=== PATIENT | female | born 1950 | race Caucasian/White ===

== ENCOUNTER 2017-07-31 13:57 | Outpatient (CLI) | payer MEDICARE, BC | END 2017-07-31 13:58 | disposition home or self-care (01) | LOC: BICMAMMO 13:57 | PROVIDERS: ATTEND Internal Medicine | DX: Z12.31 Encounter for screening mammogram for malignant neoplasm of breast (principal); Z13.820 Encounter for screening for osteoporosis; M85.88 Other specified disorders of bone density and structure, other site; N63.10 Unspecified lump in the right breast, unspecified quadrant; R92.1 Mammographic calcification found on diagnostic imaging of breast; Z80.3 Family history of malignant neoplasm of breast | CPT/HCPCS: 77063; 77067; 77080 ==

== ENCOUNTER 2017-08-13 14:34 | Outpatient (CLI) | payer MEDICARE, BC | END 2017-08-13 14:35 | disposition home or self-care (01) | LOC: BICMAMMO 14:34 | PROVIDERS: ATTEND Internal Medicine | DX: N63.10 Unspecified lump in the right breast, unspecified quadrant (principal) | CPT/HCPCS: 76642; 77065; G0279 ==

== ENCOUNTER 2018-10-02 20:52 | Emergency (ER) | payer MEDICARE, BC ==
--- NOTE | 2018-10-02 21:33 | RAD ---
3 views right shoulder: 10/02/2018 COMPARISON: None HISTORY: Prior right shoulder arthroplasty, fall, injury, pain FINDINGS: There is no widening of the right acromioclavicular or coracoclavicular interspace. There is evidence of prior shoulder arthroplasty with a prosthetic humeral head component noted. On the scapular Y view the humeral head component projects slightly anterior to the glenoid which cou ld be normal in a patient status post shoulder arthroplasty or could signify mild anterior subluxation. Clinical correlation is required. Correlation with prior imaging would be quite helpful. There is a questionable subtle fracture versus artifact on image 1 of 3 associated with the proximal right humerus laterally. This may be better assessed via CT examination. IMPRESSION: Questionable subtle nondisplaced fracture involving the lateral proximal right humerus on image 1 of 3. Anterior subluxation versus postoperative laxity on scapular Y view. Orthopedic consultation and correlation with prior postoperative imaging required.
[2018-10-02] MEDS ORDERED: HYDROcodone/Acetaminophen 5/325 mg Tablet ONE (21:58)
== END 2018-10-02 22:25 | disposition home or self-care (01) ==
LOC: SCSER 20:52
DX: M25.511 Pain in right shoulder (principal); I10 Essential (primary) hypertension; F41.9 Anxiety disorder, unspecified; Z96.611 Presence of right artificial shoulder joint; W01.0XXA Fall on same level from slipping, tripping and stumbling without subsequent striking against object, initial encounter; Y92.59 Other trade areas as the place of occurrence of the external cause

== ENCOUNTER 2018-12-29 12:48 | Day surgery (SDC) | payer MEDICARE, BC ==
[2018-12-28 13:41] VITALS: BMI 28.8
[~2018-12-29 12:48] MED LIST: FLU VACC TS2019-20(65YR UP)/PF 180 MCG/0.5 ML SYRINGE IM ONE
[2018-12-29] MEDS ORDERED: Sodium Bicarbonate 2.5 MEQ/5 ML VIAL ONE (12:50)
[2018-12-29] MEDS ORDERED: Lidocaine 1% PF 5 ML VIAL ONE (12:50)
--- NOTE | 2018-12-29 14:30 | ULT ---
THYROID ULTRASOUND: Date: 12/29/18 INDICATION: Enlarged nodular thyroid noted on recent imaging study. FINDINGS: Right lobe of thyroid is enlarged and very heterogeneous. Right lobe measures 4.8 x 1.7 x 2.5 cm. No defined mass or nodule in the right lobe. The entire right lobe is abnormal with heterogeneous echote xture. The left lobe is also very heterogeneous and enlarged. There is a circumscribed nodular mass-like are a in the superior left lobe which is very heterogeneous with internal cystic components, which measur es approximately 2.3 x 4.0 cm. The inferior left lobe is very heterogeneous. There is a calcification in the inferior left lobe producing dense shadowing obscuring portions of the lower left lobe. IMPRESSION: Both thyroid lobes are enlarged and heterogeneous. Heterogeneous complex partially cystic nodular mas s involves the superior left lobe. There is a nodular mass involving the inferior left lobe with a torres perior calcification producing dense shadowing obscuring detail. The patient is scheduled for ultrasound guided FNA of the left upper lobe mass. POS: JEANNETTE
--- NOTE | 2018-12-29 14:33 | ULT ---
PROCEDURE: Ultrasound guided FNA complex mass superior left lobe of thyroid. FINDINGS: Three FNA samples were obtained of the complex mass involving the superior left lobe of thyroid using 25 gauge needle. Each sample was given to pathology for processing. Adequacy was confirmed. INDICATION: Left lobe thyroid mass had been previously documented on outside imaging and thyroid ultrasound. Elizabeth ent referred for FNA of this mass. PROCEDURE NOTE: Neck was prepped and draped in the sterile manner. Local anesthesia over the left lobe of thyroid was administered under ultrasound guidance. A 25 gauge needle was used to enter the complex mass in the superior left lobe under ultrasound confirmation. FNA performed under ultrasound observation and guid ance. Three FNA samples were obtained and given to pathology. Postprocedure ultrasound showed no hematoma. The patient tolerated the procedure well and there were no problems or complications. POS: JEANNETTE
[2018-12-29 15:25] VITALS: BP 139/56; TEMP 97.9
== END 2018-12-29 14:20 | disposition home or self-care (01) ==
LOC: ULT 12:48
PROVIDERS: ATTEND Specialist
DX: E04.1 Nontoxic single thyroid nodule (principal)
CPT/HCPCS: 60100; 76536; 76942; 88173; 88305; J2001

== ENCOUNTER 2019-12-26 08:54 | Outpatient (CLI) | payer MEDICARE, BC, OTHER ==
[2019-12-26 16:20] LABS: SARS-CoV-2 MS2 Positive; SARS-CoV-2 N Gene Negative; SARS-CoV-2 S Gene Negative; SARS-CoV-2 by NAA Not Detected (NotDetected); SARS-CoV-2 orf1ab Negative
== END 2019-12-26 08:55 | disposition home or self-care (01) ==
LOC: LABBT 08:54
PROVIDERS: ATTEND Specialist
DX: Z20.828 Contact with and (suspected) exposure to other viral communicable diseases (principal)
CPT/HCPCS: 87635; U0003

== ENCOUNTER 2019-12-28 12:11 | Day surgery (SDC) | payer MEDICARE, BC ==
[2019-12-27 11:23] VITALS: BMI 26.4
[2019-12-28] MEDS ORDERED: Sodium Bicarbonate 2.5 MEQ/5 ML VIAL ONE (12:30)
[2019-12-28] MEDS ORDERED: Lidocaine 1% PF 5 ML VIAL ONE (12:30)
--- NOTE | 2019-12-28 14:25 | ULT ---
Thyroid nodule FNA sonographic guided x2 HISTORY: Abnormal thyroid nodules. FINDINGS: After explaining the procedure and answering all questions, the dominant nodules of the thy roid isthmus and right lobe were visualized. Sterile technique, buffered local anesthesia, sonographic guidance, and a left anterolateral approach were used to carefully advance a 25-gauge needle into the heterogeneous nodule involving the right side of the thyroid isthmus.. Position was confirmed with sonography. Findings of aspirate was obtain ed. A total of 4 passes were made and submitted to pathology for processing. Attention was then turned to the dominant nodule in the right thyroid lobe. Sterile technique, buffer ed local anesthesia, sonographic guidance, and a medial approach were used to carefully advance the tip of a 25-gauge needle into the nodule. Position confirmed with sonography. A total of 4 FNA specim ens obtained and submitted to pathology for processing. Postprocedure imaging shows no evidence of complication. Patient tolerated the procedure well and was dismissed in good condition. IMPRESSION : Technically successful sonographic guided FNA of 2 thyroid nodules. Pathology is pending.
[2019-12-28 15:10] VITALS: BP 108/58; TEMP 98.4
--- NOTE | 2019-12-30 14:18 | ULT ---
Thyroid nodule FNA sonographic guided x2 HISTORY: Abnormal thyroid nodules. FINDINGS: After explaining the procedure and answering all questions, the dominant nodules of the thy roid isthmus and right lobe were visualized. Sterile technique, buffered local anesthesia, sonographic guidance, and a left anterolateral approach were used to carefully advance a 25-gauge needle into the heterogeneous nodule involving the right side of the thyroid isthmus.. Position was confirmed with sonography. Findings of aspirate was obtain ed. A total of 4 passes were made and submitted to pathology for processing. Attention was then turned to the dominant nodule in the right thyroid lobe. Sterile technique, buffer ed local anesthesia, sonographic guidance, and a medial approach were used to carefully advance the tip of a 25-gauge needle into the nodule. Position confirmed with sonography. A total of 4 FNA specim ens obtained and submitted to pathology for processing. Postprocedure imaging shows no evidence of complication. Patient tolerated the procedure well and was dismissed in good condition. IMPRESSION : Technically successful sonographic guided FNA of 2 thyroid nodules. Pathology is pending. Transcribed Date/Time: 12/30/2019 2:18 PM
== END 2019-12-28 13:30 | disposition home or self-care (01) ==
LOC: ULT 12:11
PROVIDERS: ATTEND Specialist
PROC: 0G9H3ZX Drainage of Right Thyroid Gland Lobe, Percutaneous Approach, Diagnostic (ICD-10-PCS; principal; 2019-12-28)
DX: E04.2 Nontoxic multinodular goiter (principal); M19.90 Unspecified osteoarthritis, unspecified site; I10 Essential (primary) hypertension; F41.9 Anxiety disorder, unspecified; F32.9 Major depressive disorder, single episode, unspecified; E78.00 Pure hypercholesterolemia, unspecified; Z87.891 Personal history of nicotine dependence; Z79.82 Long term (current) use of aspirin; Z79.899 Other long term (current) drug therapy
CPT/HCPCS: 60100; 76942; 88173

== ENCOUNTER 2021-05-31 14:20 | Outpatient (CLI) | payer MEDICARE, BC | END 2021-05-31 14:21 | disposition home or self-care (01) | LOC: BICMAMMO 14:20 | PROVIDERS: ATTEND Family Medicine | DX: Z12.31 Encounter for screening mammogram for malignant neoplasm of breast (principal); Z80.3 Family history of malignant neoplasm of breast | CPT/HCPCS: 77063; 77067 ==

== ENCOUNTER 2021-10-25 08:46 | Outpatient (CLI) | payer MEDICARE, BC | END 2021-10-25 08:47 | disposition home or self-care (01) | LOC: CT 08:46 | PROVIDERS: ATTEND Orthopaedic Surgery | DX: T84.038A Mechanical loosening of other internal prosthetic joint, initial encounter (principal); M19.011 Primary osteoarthritis, right shoulder; E04.2 Nontoxic multinodular goiter; M62.511 Muscle wasting and atrophy, not elsewhere classified, right shoulder; Z96.611 Presence of right artificial shoulder joint ==

== ENCOUNTER 2022-01-20 10:15 | Inpatient (IN) | payer MEDICARE, BC ==
[2022-04-02 11:41] VITALS: BMI 28.3
[2022-04-03] MEDS ORDERED: Lidocaine 1% (PF) 30 ML VIAL ONE (06:26)
[2022-04-03] MEDS ORDERED: Bupivacaine PF 0.5% 30 ML VIAL ONE (06:26)
[2022-04-03] MEDS ORDERED: Fentanyl 100 MCG/2 ML VIAL SLOW IVP PRN (06:43)
[2022-04-03] MEDS ORDERED: Zolpidem Tartrate 5 MG TAB PO PRN (06:45)
[2022-04-03] MEDS ORDERED: HYDROcodone/Acetaminophen 10/325 mg Tablet PO PRN (06:45)
[2022-04-03] MEDS ORDERED: Ropivacaine 0.2% 550 ML 550 ML NERVE BLCK SCH (06:45)
[2022-04-03] MEDS ORDERED: traMADol HCl 50 MG TAB PO PRN ×2 (06:45)
[2022-04-03] MEDS ORDERED: Promethazine HCl 25 MG/ML VIAL IM PRN ×2 (06:45→10:13)
[2022-04-03] MEDS ORDERED: Ondansetron PF 4 MG/2 ML Vial IVP PRN (06:45)
[2022-04-03] MEDS ORDERED: Fentanyl 100 MCG/2 ML VIAL ONE (06:56)
[2022-04-03] MEDS ORDERED: Midazolam HCl 2 mg/2 ml Vial ONE (06:56)
[2022-04-03] MEDS ORDERED: Aspirin 81 mg Enteric Coated Tablet PO SCH (07:00)
[2022-04-03] MEDS ORDERED: Lidocaine 1% PF 5 ML VIAL ONE (07:19)
[2022-04-03] MEDS ORDERED: PROPOFOL 200 MG/20 ML VIAL ONE (07:19)
[2022-04-03] MEDS ORDERED: Rocuronium Bromide 10 MG/ML (10ML VIAL) ONE (07:19)
[2022-04-03] MEDS ORDERED: Dexamethasone 20 MG/5 ML VIAL ONE (07:19)
[2022-04-03] MEDS ORDERED: Bupivacaine HCl 0.5%/Epinephrine 1:200,000/PF 30 ml Vial ONE (07:19)
[2022-04-03] MEDS ORDERED: Ondansetron PF 4 MG/2 ML Vial ONE (07:19)
[2022-04-03] MEDS ORDERED: ePHEDrine 50 MG/ML VIAL ONE (07:19)
[2022-04-03] MEDS ORDERED: fentaNYL PF 100 MCG/2 ML SYRINGE ONE (07:22)
[2022-04-03] MEDS ORDERED: Dexmedetomidine 200 MCG/2 ML VIAL ONE (07:22)
[2022-04-03] MEDS ORDERED: Phenylephrine 10 MG/ML VIAL ONE (07:22)
[2022-04-03] MEDS ORDERED: Tranexamic Acid 1,000 MG/10 ML VIAL ONE (07:24)
[2022-04-03] MEDS ORDERED: Vancomycin (BATCH) 1.5 GRAM/300 ML BAG ONE (07:24)
[2022-04-03] MEDS ORDERED: Sodium Chloride 0.9% 100 ML ONE ×2 (07:24→07:25)
[2022-04-03] MEDS ORDERED: CEFAZOLIN 2 GM VIAL ONE (07:25)
[2022-04-03 07:33] LABS: SARS-CoV-2 NAA Rapid Test Not Detected (NotDetected)
[2022-04-03] MEDS ORDERED: Non-Formulary Item 1 EACH (Losartan Potassium [Cozaar] 100 MG Tablet) PO SCH (09:00)
[2022-04-03] MEDS ORDERED: SUGAMMADEX SODIUM 200 MG/2 ML VIAL ONE (09:30)
[2022-04-03] MEDS ORDERED: ePHEDrine Sulfate 50 MG/10 ML VIAL ONE (10:09)
[2022-04-03] MEDS ORDERED: Ondansetron HCl/PF 4 MG/2 ML Vial IVP PRN (10:13)
[2022-04-03] MEDS: Furosemide 40 MG TAB PO SCH (13:15)
[2022-04-03] MEDS: Losartan 25 MG TAB PO SCH (13:16)
[2022-04-03] MEDS: Sertraline 100 MG TAB PO SCH (13:16)
[2022-04-03] MEDS: Ketorolac Tromethamine 30 MG/ML VIAL IVP SCH ×2 (13:17→18:18)
[2022-04-03] MEDS: CEFAZOLIN 2 GM in Sodium Chloride 0.9% 100 ML IVPB SCH ×2 (13:41→20:41)
[2022-04-03] MEDS: HYDROcodone/Acetaminophen 10/325 mg Tablet PO PRN (20:42)
[2022-04-03] MEDS ORDERED: traZODone HCl 50 MG TAB PO SCH (21:00)
[2022-04-03] MEDS ORDERED: Non-Formulary Item 1 EACH (Trazodone Hcl [Trazodone Hcl] 100 MG Tablet) PO SCH (21:00)
[2022-04-04] MEDS: Ketorolac Tromethamine 30 MG/ML VIAL IVP SCH ×3 (00:09→12:10)
[2022-04-04] MEDS: Furosemide 40 MG TAB PO SCH (08:29)
[2022-04-04] MEDS: Sertraline 100 MG TAB PO SCH (08:29)
[2022-04-04] MEDS: Losartan 25 MG TAB PO SCH (08:29)
[2022-04-04] MEDS: HYDROcodone/Acetaminophen 10/325 mg Tablet PO PRN (12:10)
[2022-04-04 13:42] VITALS: BP 116/73; TEMP 98.2
== END 2022-04-04 13:45 | disposition home or self-care (01) | DRG 483 ==
LOC: SURG A 04-03 06:00 → EDSTATUS 04-03 10:00 → SJJU 04-03 12:54
PROVIDERS: ADMIT Orthopaedic Surgery; ATTEND Orthopaedic Surgery
PROC: 0RPJ0JZ Removal of Synthetic Substitute from Right Shoulder Joint, Open Approach (ICD-10-PCS; principal; 2022-04-03)
PROC: 0RRJ0JZ Replacement of Right Shoulder Joint with Synthetic Substitute, Open Approach (ICD-10-PCS; 2022-04-03)
DX: T84.038A Mechanical loosening of other internal prosthetic joint, initial encounter (principal); Z20.822 Contact with and (suspected) exposure to COVID-19; Y83.8 Other surgical procedures as the cause of abnormal reaction of the patient, or of later complication, without mention of misadventure at the time of the procedure; M19.011 Primary osteoarthritis, right shoulder; Z87.891 Personal history of nicotine dependence; Z79.899 Other long term (current) drug therapy
CPT/HCPCS: 80048; 85025; 93005; A4306; C1713; C1776; J1100; J1885; J2001; J2250; J2370; J2405; J2704; J2795; J3010; J3370; J3490; S0020; U0002

== ENCOUNTER 2022-04-01 10:09 | Outpatient (CLI) | payer MEDICARE, BC ==
[2022-04-01 12:25] LABS: #Basophils 0.1 10x3/uL (0.0-0.2); #Eosinphils 0.1 10x3/uL (0.0-0.5); #Monocytes 0.4 10x3/uL (0.0-1.1); #Neutrophils 3.8 10x3/uL (1.5-8.4); %Basophils 0.7 % (0.0-2.0); %Eosinophils 1.3 % (0.0-6.0); %Lymphocytes 35.8 % (18.0-47.0); %Monocytes 6.2 % (0.0-10.0); %Neutrophils 55.9 % (40.0-75.0); Hemoglobin 15.2 g/dL (12.0-15.5); Mean Corpuscular HGB CONC 34.8 g/dL (32.0-36.0); Mean Corpuscular Hemoglobin 30.8 pg (27.0-33.0); Mean Corpuscular Volume 88.6 fl (81.6-98.3); Platelet Count 166 10x3/uL (150-450); RBC Distribution Width 13.2 % (11.5-14.5); Red Blood Cell (RBC) Count 4.93 10x6/uL (3.90-5.03); White Blood Cell (WBC) Count 6.8 10x3/uL (3.5-10.5)
[2022-04-01 12:37] LABS: Anion Gap 18 mmol/L (10-20); BUN (Urea Nitrogen) 25 mg/dL (9.8-20.1); Calc. Creatinine Clearance 0 mL/min (70-130); Calcium 10.2 mg/dL (7.8-10.44); Carbon Dioxide 28 mmol/L (23-31); Chloride 100 mmol/L (98-107); Estimated GFR 61; Glucose 94 mg/dL (80-115); Potassium 3.5 mmol/L (3.5-5.1); Sodium 142 mmol/L (136-145)
== END 2022-04-01 10:10 | disposition home or self-care (01) ==
LOC: LABBT 10:09
PROVIDERS: ATTEND Orthopaedic Surgery
DX: Z01.818 Encounter for other preprocedural examination (principal); T84.038A Mechanical loosening of other internal prosthetic joint, initial encounter
CPT/HCPCS: 80048; 85025; 93005; 93010

== ENCOUNTER 2023-11-04 11:10 | Outpatient (CLI) | payer MEDICARE | END 2023-11-04 11:11 | disposition home or self-care (01) | LOC: ULT 11:10 | PROVIDERS: ATTEND Orthopaedic Surgery | DX: M79.604 Pain in right leg (principal); M79.89 Other specified soft tissue disorders ==